=== PATIENT | male | born 1965 | race Caucasian/White ===

== ENCOUNTER 2016-05-27 00:11 | Inpatient (IN) | payer OTHER ==
[2016-05-27] VITALS (11 sets, daily range): BP systolic 142–163; BP diastolic 86–90; PULSE 75–83; RESP 16–19; Ht 185.4 cm; Wt 134.0 kg
[~2016-05-27] VITALS: Ht 185.4 cm; Wt 134.0 kg
[2016-05-27] MEDS ORDERED: ACETAMINOPHEN 325 MG TAB PO PRN (04:30)
[2016-05-27] MEDS ORDERED: NACL 0.9% 3 ML SYG IV SCH (04:30)
[2016-05-27] MEDS ORDERED: NITROGLYCERIN (SL) 0.4 MG TAB SL PRN (04:30)
[2016-05-27] MEDS ORDERED: METOCLOPRAMIDE 10 MG INJ IV PRN (04:30)
[2016-05-27] MEDS ORDERED: ONDANSETRON 4 MG TAB PO PRN (04:30)
[2016-05-27] MEDS ORDERED: HYDROCODONE/APAP (5/325) TAB PO PRN (04:30)
--- NOTE | 2016-05-27 06:10 | HP ---
Date/Time of Note Date/Time of Note DATE: 05/27/16 TIME: 04:24 Assessment/Plan VTE Prophylaxis VTE Prophylaxis Intervention: anti-embolic stocking Assessment/Plan Assessment/Plan 1) Acute Methamphetamine Intoxication - Admit to Telemetry - Complete Serial Cardiac enzymes - Consider Cardiology Consult - Encourage patient to stop using Heroin - needs a program or Methadone CLinic 2) Hypertensive Emergency, treated at [facility] [place] 3) Abnormal EKG - Repeat EKG - Consider Cardiology Consult HPI/ROS Admit Date/Time Admit Date/Time May 27, 2016 at 02:11 Hx of Present Illness This patient has been transferred to us from [facility] due to insurance reasons. Entire history, as well as PE, is obtained from the transfer records and my conversation yesterday evening with the emergency room doctor there at all of you. Patient was brought in by ambulance for combative behavior. Patient had walked up to the police station naked and acting erratically. EMS was called. He was hypertensive with systolic blood pressures in the 180s and tachypneic to the 120s. He admitted to using meth today and that he is a "drug addict". He was intermittently answering questions. Mostly muttering nonsensical statements, however every third or fourth time asking a question the patient responded appropriately. He was anxious but denied any acute pain. He states he injected meth today. On review of old notes patient has been admitted on hold in the past for suicidal ideations and has similar presentation where he was found naked in a parking lot after using meth. Review of systems: Unable to obtain due to altered mental status Allergies: No known drug allergies Past medical/family/social history/surgical history: Left hand surgery per patient. Methamphetamine use Vital signs on arrival at 1422: Temperature 37F; heart rate 114 bpm; respiratory rate 22; systolic blood pressure 224; diastolic blood pressure 90; M AP 135; BP location, left upper Vital signs at 1558: heart rate; 93 respiratory rate 20; systolic blood pressure 175; diastolic blood pressure 95; M AP 122; BP location left upper Physical exam: General: Alert, not oriented. Muttering but answers questions occasionally appropriately with clear voice Head: Normocephalic atraumatic, no hemotympanum. No santana sign. No diaphoresis Neck: Supple Eye: Pupils are equal round and reactive to light, extraocular movements are intact, normal conjunctivae, vision grossly normal Cardiovascular: No edema, tachycardic Respiratory: Lungs are clear to auscultation, respirations are nonlabored, breath sounds are equal Gastrointestinal: Soft nontender nondistended Musculoskeletal: No deformity Neurological: Moves all 4 extremities, walks on own to [facility] Psychiatric: Cooperative Medical decision makin-year-old male presents after injection of methamphetamine. Appears acutely intoxicated. Given level of hypertension, possible myocardial injury. Doubt ICH or meningitis given lack of fever and alternate cause. Doubt coingestions of toxic substance such as Tylenol. - Ativan 1 mg IV - labs including CPK, troponin - EKG - monitor Reexamination/reevaluation: 1502 patient still anxious after 1 mg Ativan IV, will repeat. Deep ST depression laterally on EKG, no prior. Will repeat 1624 EKG shows unchanged EKG ST depression with systolic blood pressure now 170s. Sleeping and protecting airway. Troponin detectable, will repeat. Patient will require admission for cardiac monitoring 1803 patient remains relaxed after 2 mg IV Ativan. Systolic blood pressure down to 160s which is approximate goal for possible hypertensive emergency given troponin elevation and abnormal EKG findings. Will require inpatient management of blood pressure and repeat creatinine/CK monitoring [address], CT has returned and shows no acute abnormality. Repeat troponin decreasing.'s cyst Dollard blood pressure has been consistently 160s after 2 mg IV Ativan and 2 L IV fluids. Repeating basic metabolic panel and CK at this time. Spoke with Dr. Felipe from [facility] will transfer patient for acute methamphetamine substance abuse Labs: WBCs 13.0 with 77.4% neutrophils Hemoglobin/hematocrit 15.3/45.4 Platelets 196 Sodium 141, potassium 3.1, chloride 108, CO2 18, anion gap 15, BUN 15, creatinine 1.53, EGFR 52, glucose level 139 (done at 1435) Sodium 145, potassium 3.6, chloride 110, CO2 28, anion gap 7, BUN 13, creatinine 1.22, EGFR 68, glucose 112 (done at 202) Serial CKs: 591 to 484 (26-174) Serial troponins: 0.038 to 0.023 (less than or equal to 0.028) Acetaminophen level: Less than 10.0 Salicylate level: Less than 4.0 CT brain without contrast: No acute intracranial hemorrhage, mass, extra-axial fluid collection or gross evidence of infarction (preliminary report) ROS See HPI for available ROS. Subjective hx not possible: other (Due to patient's condition) PMH/Family/Social Past Medical History Medical History: hypertension Social History Smoking Status: Unknown if ever smoked Drug Use: heroin Exam/Review of Systems Vital Signs Vitals Vital Signs Date Time Temp Pulse Resp B/P Pulse Ox O2 Delivery O2 Flow Rate FiO2 05/27/16 02:26 83 05/27/16 02:00 97.7 16 163/90 97 Room Air Exam Exam General: Sleeping, snoring loudly Psychiatric: Unable to assess - No Further PE as patient refuses exam FRANCO FELIPE DO May 27, 2016 04:40 Pulmonary: Clear to Auscultation Bilaterally, Normal Respiratory Effort, No Rales, Rhonchi or Wheezes Gastrointestinal: Normoactive Bowel Sounds, Soft, Non-Tender/Non-Distended, No Hepatosplenomegaly Appreciated, No Pulsatile Masses Urogenital: Deferred Musculoskeletal: Normal Muscle Bulk and Tone Neurological: CN II - XII Grossly Intact, Non-Focal, Speech Normal Integumentary: Normal Moisture and Temperature, Good Turgor, No Jaundice, No Rash Lymphatic: No Cervical Lymphadenopathy Psychiatric: Appropriate Mood and Affect, Good Eye Contact FRANCO FELIPE DO May 27, 2016 04:40
[2016-05-27] MEDS: FAMOTIDINE 20 MG TAB PO SCH ×2 (08:53→21:24)
[2016-05-27] MEDS: ENOXAPARIN 40 MG/0.4 ML SYG SC SCH (09:02)
[2016-05-27 09:47] LABS: ADD SCAN DIFF NO
[2016-05-27 09:50] LABS: BASOPHILS % 0.3 % (0.0-2.0); EOSINOPHILS # 0.2 10^3/ul (0.0-0.5); EOSINOPHILS % 2.7 % (0.0-7.0); HEMATOCRIT 43.1 % (42.0-52.0); HEMOGLOBIN 14.5 g/dl (14.0-18.0); LYMPHOCYTES # 1.9 10^3/ul (0.8-2.9); LYMPHOCYTES % 21.3 % (15.0-51.0); MEAN CORPUSCULAR HEMOGLOBIN 29.1 pg (29.0-33.0); MEAN CORPUSCULAR HGB CONC 33.6 g/dl (32.0-37.0); MEAN CORPUSCULAR VOLUME 86.5 fl (82.0-101.0); MEAN PLATELET VOLUME 10.8 fl (7.4-10.4); MONOCYTE # 0.6 10^3/ul (0.3-0.9); MONOCYTES % 6.6 % (0.0-11.0); NEUTROPHIL # 6.2 10^3/ul (1.6-7.5); NEUTROPHILS % 68.8 % (39.0-77.0); PLATELET COUNT 210 10^3/UL (140-415); RED BLOOD COUNT 4.98 10^6/ul (4.70-6.10); RED CELL DISTRIBUTION WIDTH 13.6 % (11.5-14.5)
[2016-05-27 10:06] LABS: ALBUMIN 3.4 g/dl (3.3-4.9)
[2016-05-27 10:09] LABS: ALBUMIN/GLOBULIN RATIO 1.13; BILIRUBIN,INDIRECT 0.8 mg/dl (0-1.1); BILIRUBIN,TOTAL 0.8 mg/dl (0.2-1.3); CREATININE 1.09 mg/dl (0.61-1.24); TOTAL PROTEIN 6.4 g/dl (6.1-8.1)
[2016-05-27 10:10] LABS: CALCIUM 8.6 mg/dl (8.4-10.2); CHOL/HDL RATIO 2.7 RATIO; MAGNESIUM 1.8 mg/dl (1.7-2.5)
--- NOTE | 2016-05-27 10:15 | RADRPT ---
Echocardiogram Report Patient Name: AVERY SHIPLEY Gender: Male Date: 1965 Study Date: 27-May-2016 Senior Telecommunications Technician: [facility] Location: [id number] Ref. Physician: FRANCO FELIPE Quality: Technically Difficult Study Procedures: Transthoracic echocardiogram with complete 2D, M-Mode, and doppler examination. Indications: Chest Pain. 2D/M Mode Doppler Measurement Value Normal Ranges Measurement Value Normal Ranges LVIDd 2D 4.0 3.5 - 5.6 cm VENESSA Vmax 2.9 cm2 LVIDs 2D 2.9 2.1 - 4.1 cm VENESSA VTI 2.9 cm2 LVPWd 2D 1.2 0.6 - 1.1 cm AV Peak Luis Enrique 1.7 m/sec IVSd 2D 1.2 0.6 - 1.1 cm AV Peak PG 10.9 mmHg AoR Diam 2D 3.0 2.0 - 3.7 cm LVOT Peak Luis Enrique 1.4 m/sec EDV 2D 71.5 cm3 LVOT Peak PG 8.2 mmHg ESV 2D 25.2 cm3 MV E Peak Luis Enrique 1.0 m/sec LVOT Diam 2.1 cm MV A Peak Luis Enrique 0.7 m/sec MV E/A 1.5 MV Decel Time 185 msec MV Decel Hardee 5 MV E/A 1.5 Findings Left Ventricle: Normal left ventricular systolic function. Normal left ventricular cavity size. Left ventricular wall thickness upper limits of normal. Ejection fraction is visually estimated at 65 %. Abnormal Diastolic Function. Right Ventricle: Normal right ventricular size. Normal right ventricular systolic function. Left Atrium: The left atrium is normal in size. Right Atrium: The right atrium is normal in size. Mitral Valve: Mild mitral leaflet calcification. Trace mitral regurgitation. Aortic Valve: Aortic valve not well visualized. No aortic regurgitation. Tricuspid Valve: Tricuspid valve not well visualized. There is trace tricuspid regurgitation. Pulmonic Valve: There is trace pulmonic regurgitation. Pericardium: Not well visualized. Aorta: Normal aortic root. IVC: The IVC is not well visualized. Conclusions 1.Normal left ventricular systolic function. Normal left ventricular cavity size. Left ventricular wall thickness upper limits of normal. Ejection fraction is visually estimated at 65 %. Abnormal Diastolic Function. 2.Mild mitral leaflet calcification. Trace mitral regurgitation. 3.Aortic valve not well visualized. No aortic regurgitation. 4.Tricuspid valve not well visualized. There is trace tricuspid regurgitation. 5.There is trace pulmonic regurgitation. 6.Not well visualized. Electronically Signed By: Dung Barrios 27-May-2016 10:14:46 -0700 Patient Name: AVERY SHIPLEY Study Date: 27-May-2016 [id number]
[2016-05-27 10:17] LABS: TROPONIN-I 0.015 ng/ml (0.00-0.12)
[2016-05-27 10:22] LABS: CK-MB 5.09 ng/ml (0.0-2.4)
--- NOTE | 2016-05-27 14:51 | RADRPT ---
Vent Rate: 71 bpm RR Interval: 0 msec FL Interval: 168 msec QRS Duration: 98 msec QT Interval: 442 msec QTC Interval: 480 msec P-R-T [facility]: 47 - -6 - 0 degrees Normal sinus rhythm Left ventricular hypertrophy with repolarization abnormality Prolonged QT Abnormal ECG No previous tracing available for comparison Electronically Signed By: Vineet Stokes [id number]
[2016-05-27] MEDS ORDERED: MAGNESIUM SULFATE 1 GM/D5W 100 ML IVPB ONE (16:00)
[2016-05-27] MEDS: POTASSIUM CHLORIDE 250 ML IVPB SCH ×2 (16:53→23:28)
[2016-05-27] MEDS: LORAZEPAM 2 MG INJ IV PRN (21:25)
[2016-05-28] VITALS (11 sets, daily range): BP systolic 139–170; BP diastolic 78–99; PULSE 69–90; RESP 14–20
[2016-05-28] MEDS: FAMOTIDINE 20 MG TAB PO SCH ×2 (08:11→19:49)
[2016-05-28] MEDS: ENOXAPARIN 40 MG/0.4 ML SYG SC SCH (08:12)
[2016-05-28] MEDS: LORAZEPAM 2 MG INJ IV PRN ×2 (09:47→18:11)
[2016-05-28] MEDS: HYDROCODONE/APAP (5/325) TAB PO PRN ×2 (09:47→19:49)
[2016-05-28] MEDS ORDERED: hydrALAzine 20 MG INJ IV ONE (13:30)
[2016-05-28 15:12] LABS: CALCIUM 8.7 mg/dl (8.4-10.2); CREATININE 1.07 mg/dl (0.61-1.24); POTASSIUM 3.6 mmol/L (3.5-5.1)
--- NOTE | 2016-05-28 18:05 | PN ---
Date/Time of Note Date/Time of Note DATE: 05/28/16 TIME: 18:03 Assessment/Plan VTE Prophylaxis VTE Prophylaxis Intervention: LMWH Lines/Catheters IV [facility]ter [facility]from [facility] Saline Lock Urinary Cath still in place: No Assessment/Plan Chief Complaint/Hosp Course 1) Acute Methamphetamine Intoxication-Improved - advised to stop using 2) Hypertensive Emergency-Improved -Hydralazine PRN PPx- Lovenox Problems: Subjective 24 Hr Interval Summary Constitutional: no complaints Exam/Review of Systems Vital Signs Vitals Vital Signs Date Time Temp Pulse Resp B/P Pulse Ox O2 Delivery O2 Flow Rate FiO2 05/28/16 16:19 90 05/28/16 15:53 98.0 18 139/78 97 05/28/16 04:24 Room Air Intake and Output 05/27/16 05/27/16 05/28/16 15:00 23:00 07:00 Intake Total 1250 ml 650 ml Output Total 700 ml 1000 ml Balance 550 ml -350 ml Exam Constitutional: alert, oriented Respiratory: clear to auscultation Cardiovascular: regular rate and rhythm Gastrointestinal: soft, No distended Musculoskeletal: No nl extremities to inspection Results Result Diagram: 05/27/16 0920 05/28/16 1446 Results 24 hrs Laboratory Tests Test 05/28/16 14:46 Sodium Level 139 Potassium Level 3.6 Chloride Level 112 H Carbon Dioxide Level 25 Anion Gap 6 L Blood Urea Nitrogen 13 Creatinine 1.07 Glucose Level 116 # Calcium Level 8.7 Magnesium Level 2.0 Medications Medications Current Medications Lorazepam (Ativan) 0.5 mg Q6H PRN IV ANXIETY Last administered on 05/28/16t 09: 47; Admin Dose 0.5 MG; Start 05/27/16 at 04:30 Ondansetron HCl (Zofran Tab) 4 mg Q6H PRN PO NAUSEA AND/OR VOMITING; Start at 04:30 Metoclopramide HCl (Reglan) 10 mg Q6H PRN IV NAUSEA AND/OR VOMITING; Start at 04:30 Nitroglycerin (Nitroglycerin (Sl Tab) 0.4 Mg) 1 tab Q5M PRN SL CHEST PAIN; Start 05/27/16 at 04:30 Acetaminophen (Tylenol Tab) 650 mg Q6H PRN PO PAIN LEVEL 1-3 OR FEVER; Start at 04:30 Acetaminophen/ Hydrocodone Bitart (Wilcox (5/325)) 1 tab Q6H PRN PO PAIN LEVEL 4 -6 Last administered on 05/28/16 09:47; Admin Dose 1 TAB; Start 05/27/16 at 04: 30 Acetaminophen/ Hydrocodone Bitart (Wilcox (5/325)) 2 tab Q6H PRN PO PAIN LEVEL 7 -10; Start 05/27/16 at 04:30 Famotidine (Pepcid) 20 mg Q12 PO Last administered on 05/28/16 08:11; Admin Dose 20 MG; Start 05/27/16 at 09:00 Enoxaparin Sodium (Lovenox) 40 mg DAILY SC Last administered on 05/28/16 08:12 ; Admin Dose 40 MG; Start 05/27/16 at 09:00 LUIS ARMANDO JACOBS May 28, 2016 18:05
[2016-05-28] MEDS ORDERED: hydrALAzine 20 MG INJ IV PRN (18:30)
[2016-05-29] VITALS (8 sets, daily range): BP systolic 128–175; BP diastolic 63–95; PULSE 68–81; RESP 20
[2016-05-29] MEDS: LORAZEPAM 2 MG INJ IV PRN (01:56)
[2016-05-29] MEDS: ENOXAPARIN 40 MG/0.4 ML SYG SC SCH (08:25)
[2016-05-29] MEDS: FAMOTIDINE 20 MG TAB PO SCH (08:25)
[2016-05-29] MEDS ORDERED: AMLODIPINE 5 MG TAB PO SCH (10:30)
--- NOTE | 2016-05-29 10:40 | PDOCDIS ---
Discharge Instructions CONDITION Patient Condition: Good HOME CARE INSTRUCTIONS: Diet Instructions: Reduced Calorie ACTIVITY: Activity Restrictions: No Restrictions FOLLOW UP/APPOINTMENTS Appointments F/U WITH YOUR PCP IN 1-2 WEEKS, YOU WILL NEED TO SEE YOUR PCP TO MANAGE YOUR BLOOD PRESSURE AND THEY WOULD POTENTIALLY HAVE TO INCREASE YOUR MEDICATION DOSAGE IF YOUR BLOOD PRESSURE IS NOT CONTROLLED LUIS ARMANDO JACOBS May 29, 2016 10:40
[2016-05-29] MEDS ORDERED: AMLO-145 PO (10:41)
--- NOTE | 2016-05-30 02:49 | DS ---
DATE OF ADMISSION: 05/27/2016 DATE OF DISCHARGE: 05/29/2016 DISCHARGE DIAGNOSES: 1. Acute toxic encephalopathy secondary to methamphetamine abuse, now resolved. 2. Hypertensive emergency, improved, discharge with Norvasc. 3. Substance abuse. The patient has been advised to stop using. HOSPITAL COURSE: The patient is a 50-year-old male with no reported medical history. The patient p resented altered secondary to meth abuse. He had acute toxic encephalopathy. Blood pressure was al so severely elevated, likely secondary to underlying hypertension mixed with amphetamine use. Of no te, his troponin was negative. The patient's BP was persistently elevated and was started on Norvas c. BP did improve. The patient's encephalopathy did resolve. He was advised to stop using drugs. He understood. The patient does also have obesity. He was advised to improve his lifestyle. On d ay of discharge, the patient's vital signs, labs, physical exam were stable. He had no acute compla ints, and questions were answered. CONDITION ON DISCHARGE: Stable. DISPOSITION: To home. MEDICATIONS: The patient was given a prescription for Norvasc 5 mg p.o. daily. The patient has no reported home medications prior to his arrival. FOLLOWUP: The patient to follow up with PCP in 1 to 2 weeks. Greater than 30 minutes was spent coordinating discharge of patient. Dictated By: LUIS ARMANDO PARKER/NTS Conf#: [id number] DID#: [id number]
== END 2016-05-29 12:48 | disposition home or self-care (01) | DRG 92 ==
LOC: MS4 02:11
PROVIDERS: ADMIT Family Medicine; ATTEND Family Medicine
DX: G92 Toxic encephalopathy (principal); I16.1 Hypertensive emergency; F15.129 Other stimulant abuse with intoxication, unspecified; I10 Essential (primary) hypertension
CPT/HCPCS: 80048; 80053; 80061; 82550; 82553; 82962; 83036; 83735; 84484; 85025; 93005; 93306; J0360; J1650; J2060; J3475; J3480